=== PATIENT | male | born 1940 ===

== ENCOUNTER 2019-03-25 20:03 | Emergency (ER) | payer OTHER ==
[2019-03-25 20:03] VITALS: BMI 25.5
[2019-03-25 21:02] VITALS: TEMP 97.5; O2SAT 97
--- NOTE | 2019-03-25 21:49 | ED PDOC ---
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 aneurysm, hypothyroid presents for evaluation of uncontrolled blood pressure x 1 week. Patient states he has been getting readings in the 160's/90's sometimes and then in 130's/80's other times. Family unable to state where his aneurysm is, but states patient has a CT chest every year to check it and was told by his doctor that it is 4.5cm in size and does not need surgery unless it grows. Patient states he was told by his laboratory engineer that hisblood pressure should be at or under 120/80. Patient states he takes Metoprolol 100mg every morning and Losartan 100mg every night (did not take tonights dose). Patient denies headache, dizziness, extremity numbness/weakness, vision changes, chest pain, shortness of breath, palpitations, abdominal pain, urinary symptoms PMD: Dr. Vincent Del Castillo Dobby Loom Fixer: Dr. Blanchard Past Medical History Reviewed: Historical Data, Nursing Documentation, Vital Signs Vital Signs: Last Vital Signs Temp 97.5 F L 03/25/19 21:02 Pulse 69 03/25/19 21:02 Resp 16 03/25/19 21:02 BP 193/81 H 03/25/19 21:02 Pulse Ox 97 03/25/19 21:02 Primary Care Provider: Vincent Del Castillo - Medical History PMH: Anemia, Diverticulitis, Gastrointestinal Ulcer, Gall Bladder Disease, HTN, Hypercholesterolemia, Hypothyroidism Denies: Chronic Kidney Disease - Surgical History Surgical History: Cholecystectomy, Endoscopy - Family History Family History: States: No Known Family Hx - Home Medications Home Medications: Ambulatory Orders Medication Instructions Recorded Levothyroxine Sodium [Levoxyl] 125 mcg PO DAILY 07/13/15 Lisinopril/Hydrochlorothiazide 1 tab PO DAILY 07/13/15 [Lisinopril-Hctz 20-25 mg Tab] Allopurinol [Zyloprim] 100 mg PO DAILY 09/20/16 Metoprolol Succinate XL [Toprol XL] 50 mg PO DAILY 09/20/16 Nifedipine [Nifedical Xl] 60 mg PO DAILY 09/20/16 Pravastatin Sodium [Pravachol] 20 mg PO DAILY 09/20/16 - Allergies Allergies/Adverse Reactions: Allergies Allergy/AdvReac Type Severity Reaction Status Date / Time ciprofloxacin [From Cipro] Allergy Intermediate SWELLING Verified 09/20/16 09:53 ciprofloxacin HCl Allergy Intermediate SWELLING Verified 09/20/16 09:53 [From Cipro] hyoscyamine sulfate Allergy Intermediate SWELLING Verified 09/20/16 09:53 [From Uribel] methenamine [From Uribel] Allergy Intermediate SWELLING Verified 09/20/16 09:53 methylene blue [From Uribel] Allergy Intermediate SWELLING Verified 09/20/16 09:53 phenyl salicylate Allergy Intermediate SWELLING Verified 09/20/16 09:53 [From Uribel] sodium phosphate Allergy Intermediate SWELLING Verified 09/20/16 09:53 [From Uribel] Review of Systems ROS Statement: Except As Marked, All Systems Reviewed And Found Negative Physical Exam - Reviewed Nursing Documentation Reviewed: Yes Vital Signs Reviewed: Yes - Physical Exam Appears: Positive for: Well, Non-toxic, No Acute Distress Head Exam: Positive for: ATRAUMATIC, NORMAL INSPECTION, NORMOCEPHALIC Skin: Positive for: Normal Color Eye Exam: Positive for: Normal appearance ENT: Positive for: Normal ENT Inspection Cardiovascular/Chest: Positive for: Regular Rate, Rhythm Respiratory: Positive for: Normal Breath Sounds Gastrointestinal/Abdominal: Positive for: Normal Exam Back: Positive for: Normal Inspection Extremity: Positive for: Normal ROM Neurological/Psych: Positive for: Awake, Alert, Oriented (x3) - Laboratory Results Result Diagrams: 03/25/19 22:18 03/25/19 22:18 - ECG ECG: Positive for: Viewed By Me (reviewed by ED attending) ECG Rhythm: Positive for: Sinus Rhythm O2 Sat by Pulse Oximetry: 97 - Progress ED Course And Treament: -cbc -cmp -ekg -gambling monitor -Losartan PO On re-eval, BP improved. Patient resting comfortably; denies acute complaints. Patient/family educated on findings, discharged with instructions to follow up with D[employer] Loom Fixer tomorrow Continue current medications Copies of labs given to patient to bring to PMD; family states they are aware of elevated kidney tests Return precautions given Disposition - Clinical Impression Clinical Impression: Hypertension, Elevated BUN - Patient ED Disposition Is Patient to be Admitted: No Counseled Patient/Family Regarding: Studies Performed, Diagnosis, Need For Foll owup - Disposition Disposition: Routine/Home Disposition Time: 23:56 Condition: IMPROVED Instructions: High Blood Pressure in Adults, Controlling Your Blood Pressure Through Lifestyle Print Language: SALV[place]ORE[place]
[2019-03-25 22:21] LABS: BASO % 0.8 % (0.0-2.0); EOS # 0.3 K/uL (0.0-0.7); EOS % 4.3 % (0.0-4.0); HEMOGLOBIN 15.2 g/dL (12.0-18.0); LYMPH # 2.4 K/uL (1.0-4.3); MEAN CORPUSCULAR HEMOGLOBIN 27.4 pg (27.0-31.0); MEAN CORPUSCULAR HGB CONC 32.3 g/dL (33.0-37.0); MEAN PLATELET VOLUME 10.2 fl (7.2-11.7); MONO # 0.6 K/uL (0.0-0.8); NEUT % 47.9 % (50.0-75.0); NRBC % 0.2 % (0.0-0.0); RBC 5.55 Mil/uL (4.40-5.90); RED CELL DISTRIBUTION WIDTH 14.8 % (11.5-14.5); WHITE BLOOD COUNT 6.2 K/uL (4.8-10.8)
[2019-03-25 22:42] LABS: ALB/GLOB RATIO 1.3 (1.0-2.1); ALT/SGPT 31 U/L (21-72); AST/SGOT 41 U/L (17-59); BLOOD UREA NITROGEN 32 mg/dl (9-20); CALCIUM 9.4 mg/dL (8.4-10.2); GFR NON-AFRICAN AMERICAN > 60
[2019-03-25 23:47] VITALS: RESP 18
[2019-03-26 01:16] VITALS: BP 137/68; PULSE 65
--- NOTE | 2019-03-26 09:45 | CARD ---
APPROVED REPORT Date of service: 03/25/2019 EKG Measurement Heart [id number] <Conclusion> Normal sinus rhythm Possible Left atrial enlargement Nonspecific T wave abnormality Abnormal ECG
== END 2019-03-25 23:57 | disposition home or self-care (01) ==
LOC: H.ER 20:03
DX: I10 Essential (primary) hypertension (principal); R79.89 Other specified abnormal findings of blood chemistry; E03.9 Hypothyroidism, unspecified; E78.00 Pure hypercholesterolemia, unspecified; Z88.1 Allergy status to other antibiotic agents